=== PATIENT | male | born 1965 | race Asian ===

== ENCOUNTER 2022-07-05 14:54 | Inpatient (IN) | payer BC, OTHER ==
[~2022-07-05] VITALS: Ht 185.4 cm; Wt 135.6 kg
[2022-07-05] MEDS ORDERED: ALBUTEROL SULFATE 2.5 MG/3 ML NEBU ONE (15:13)
[2022-07-05] MEDS ORDERED: ALBUTEROL SULFATE 2.5 MG/ 0.5 ML NEBU ONE (15:13)
[2022-07-05] MEDS ORDERED: IPRATROPIUM BROMIDE 0.5 MG/2.5 ML NEBU ONE (15:14)
[2022-07-05] MEDS ORDERED: ASPIRIN 325 MG TABLET PO ONE (15:15)
[2022-07-05] MEDS ORDERED: methylPREDNISolone SOD SUCC 125 MG/2 ML VIAL IV ONE (15:15)
[2022-07-05] MEDS ORDERED: ALBUTEROL SULFATE 2.5 MG/3 ML NEBU NEB ONE (15:15)
[2022-07-05] MEDS ORDERED: IPRATROPIUM BROMIDE 0.5 MG/2.5 ML NEBU NEB ONE (15:15)
[2022-07-05 15:26] LABS: HEMATOCRIT 42.3 % (36.7-47.1); MEAN CORPUSCULAR HEMOGLOBIN 30.7 uug (23.8-33.4); MEAN CORPUSCULAR VOLUME 92.9 fL (73.0-96.2); PLATELET COUNT (AUTO) 319 K/uL (152-348)
[2022-07-05] MEDS ORDERED: methylPREDNISolone SOD SUCC 125 MG/2 ML VIAL ONE (15:44)
[2022-07-05] MEDS ORDERED: ASPIRIN 325 MG TABLET ONE (15:44)
[2022-07-05] MEDS ORDERED: ALBU0.63 NEB (16:25)
[2022-07-05] MEDS ORDERED: LOSA50TA39 PO (16:25)
[2022-07-05] MEDS ORDERED: CARV25TA2 PO (16:25)
[2022-07-05] MEDS ORDERED: FURO-151 PO (16:25)
[2022-07-05] MEDS ORDERED: EMPA25TA PO (16:25)
[2022-07-05] MEDS ORDERED: ASPI81TA31 PO (16:25)
[2022-07-05] MEDS ORDERED: AMLO-212 PO (16:25)
[2022-07-05 17:47] LABS: CARBON DIOXIDE 26 mmol/L (21-32); CHLORIDE 107 mmol/L (98-107); GLUCOSE 110 mg/dL (74-106); POTASSIUM 3.9 mmol/L (3.5-5.1); UREA NITROGEN, BLOOD 9 mg/dL (7-18)
[2022-07-05 18:00] LABS: ALANINE AMINOTRANSFERASE 36 U/L (16-63); ALKALINE PHOSPHATASE 98 U/L (50-136); ASPARTATE AMINOTRANSFERASE 20 U/L (15-37); BILIRUBIN,DIRECT 0.1 mg/dL (0.0-0.2); BILIRUBIN,TOTAL 0.9 mg/dL (0.2-1.0); TOTAL PROTEIN, SERUM 7.9 g/dL (6.4-8.2)
[2022-07-05] MEDS ORDERED: MAGNESIUM HYDROXIDE 30 ML LIQUID UDC PO PRN (19:15)
[2022-07-05] MEDS ORDERED: MORPHINE SULFATE 2 MG/1 ML DISP.SYRIN IV PRN (19:15)
[2022-07-05] MEDS ORDERED: ACETAMINOPHEN 325 MG TABLET PO PRN (19:15)
[2022-07-05] MEDS ORDERED: HYDROCODONE/APAP 5-325MG TABLET PO PRN (19:15)
[2022-07-05] MEDS ORDERED: REMEDY ESSENTIAL ZINC PASTE 113 GM TP PRN (19:15)
[2022-07-05] MEDS ORDERED: ONDANSETRON 4 MG/2 ML VIAL IV PRN (19:15)
[2022-07-05] MEDS ORDERED: methylPREDNISolone SOD SUCC 40 MG/ML VIAL IV SCH (19:15)
[2022-07-05] MEDS: IPRATROPIUM BROMIDE 0.5 MG/2.5 ML NEBU NEB PRN ×2 (19:36→23:39)
[2022-07-05] MEDS: ALBUTEROL SULFATE 2.5 MG/3 ML NEBU NEB PRN ×2 (19:36→23:39)
[2022-07-05] MEDS ORDERED: HOME MED MISCELLANEOUS XX SCH (19:45)
[2022-07-05] MEDS ORDERED: AZITHROMYCIN IV 500 MG in IV DEXTROSE 5% 250 ML IV SCH (19:45)
[2022-07-05] MEDS ORDERED: DEXTROSE 50% 50 ML DISP.SYRIN IV PRN (19:45)
[2022-07-05] MEDS ORDERED: CEFTRIAXONE 1 G in IV DEXTROSE 5% 50 ML IV SCH (19:45)
[2022-07-05 20:00] VITALS: BP 158/98
[2022-07-05] MEDS: methylPREDNISolone SOD SUCC 40 MG/ML VIAL IV SCH (20:18)
[2022-07-05] MEDS: ENOXAPARIN SODIUM 40 MG/0.4 ML DISP.SYRIN SQ SCH (20:19)
[2022-07-05] MEDS: BLOOD SUGAR DIAGNOSTIC 1 EACH STRIP VI SCH (20:20)
[2022-07-05] MEDS ORDERED: AZITHROMYCIN 500MG/ D5W 250ML IVPB **ER PYXIS ONLY IV ONE (20:53)
[2022-07-05] MEDS ORDERED: CEFTRIAXONE /D5W 50ML IVPB **ER PYXIS IV ONE (20:53)
[2022-07-06] VITALS: BP 151/83
[2022-07-06 04:00] VITALS: BP 141/83
[2022-07-06] MEDS: methylPREDNISolone SOD SUCC 40 MG/ML VIAL IV SCH ×3 (05:13→22:30)
[2022-07-06] MEDS: PANTOPRAZOLE SODIUM 40 MG TABLET.DR PO SCH (06:20)
[2022-07-06] MEDS: BLOOD SUGAR DIAGNOSTIC 1 EACH STRIP VI SCH ×4 (06:33→20:20)
[2022-07-06 06:54] LABS: HEMATOCRIT 43.2 % (36.7-47.1); MEAN CORPUSCULAR HEMOGLOBIN 30.7 uug (23.8-33.4); MEAN CORPUSCULAR VOLUME 92.4 fL (73.0-96.2); PLATELET COUNT (AUTO) 335 K/uL (152-348)
[2022-07-06 07:25] LABS: CREATININE 1.1 mg/dL (0.6-1.3); MAGNESIUM 2.1 mg/dL (1.8-2.4); PHOSPHOROUS 4.1 mg/dL (2.5-4.9); POTASSIUM 3.9 mmol/L (3.5-5.1)
[2022-07-06 07:32] LABS: THYROID STIMULATING HORMONE 0.357 mIU/mL (0.358-3.740)
[2022-07-06] MEDS ORDERED: MORPHINE SULFATE 2 MG/1 ML DISP.SYRIN IV PRN (08:09)
[2022-07-06] MEDS: LOSARTAN POTASSIUM 50 MG TABLET PO SCH (08:49)
[2022-07-06] MEDS: CARVEDILOL 25 MG TABLET PO SCH ×2 (08:49→17:37)
[2022-07-06] MEDS: ASPIRIN 81 MG TAB.CHEW PO SCH (08:49)
[2022-07-06] MEDS: FUROSEMIDE 40 MG TABLET PO SCH (08:50)
[2022-07-06] MEDS ORDERED: AMLODIPINE 5 MG TABLET PO ONE (09:00)
[2022-07-06] MEDS ORDERED: AMLODIPINE 5 MG TABLET PO SCH (09:00)
[2022-07-06] MEDS: EMPAGLIFLOZIN 25 MG TABLET PO SCH (09:00)
[2022-07-06 11:42] VITALS: BP 126/77
[2022-07-06] MEDS: INSULIN REGULAR, HUMAN 300 UNIT/3 ML VIAL SQ PRN ×3 (13:26→23:27)
[2022-07-06 15:39] VITALS: BP 136/64
[2022-07-06] MEDS: AMLODIPINE 5 MG TABLET PO SCH (17:37)
[2022-07-06] MEDS: ENOXAPARIN SODIUM 40 MG/0.4 ML DISP.SYRIN SQ SCH (20:14)
[2022-07-06] MEDS ORDERED: CEFTRIAXONE 2 G in IV DEXTROSE 5% 100 ML IV SCH (21:00)
[2022-07-06] MEDS ORDERED: ATORVASTATIN 20 MG TABLET PO SCH (21:00)
[2022-07-06] MEDS ORDERED: AZITHROMYCIN IV 500 MG in IV DEXTROSE 5% 250 ML IV SCH (22:00)
[2022-07-07 00:50] VITALS: BP 106/60
[2022-07-07 05:00] VITALS: BP 136/69
[2022-07-07] MEDS: methylPREDNISolone SOD SUCC 40 MG/ML VIAL IV SCH (06:20)
[2022-07-07] MEDS: PANTOPRAZOLE SODIUM 40 MG TABLET.DR PO SCH (06:20)
[2022-07-07] MEDS: BLOOD SUGAR DIAGNOSTIC 1 EACH STRIP VI SCH ×2 (07:34→11:14)
[2022-07-07] MEDS: ASPIRIN 81 MG TAB.CHEW PO SCH (08:35)
[2022-07-07] MEDS: EMPAGLIFLOZIN 25 MG TABLET PO SCH (08:36)
[2022-07-07] MEDS: FUROSEMIDE 40 MG TABLET PO SCH (08:47)
[2022-07-07] MEDS: LOSARTAN POTASSIUM 50 MG TABLET PO SCH (08:47)
[2022-07-07] MEDS: AMLODIPINE 5 MG TABLET PO SCH (08:47)
[2022-07-07] MEDS: CARVEDILOL 25 MG TABLET PO SCH (08:53)
[2022-07-07] MEDS: INSULIN REGULAR, HUMAN 300 UNIT/3 ML VIAL SQ PRN ×2 (09:01→11:17)
[2022-07-07] MEDS ORDERED: METH4TAB3 PO (11:07)
[2022-07-07 12:00] VITALS: BP 141/76
== END 2022-07-07 16:25 | disposition home or self-care (01) | DRG 202 ==
LOC: ER 14:58 → TELE3 17:52
PROVIDERS: ADMIT Nurse Practitioner Acute Care; ATTEND Nurse Practitioner Acute Care
DX: J45.901 Unspecified asthma with (acute) exacerbation (principal); J96.01 Acute respiratory failure with hypoxia; I50.32 Chronic diastolic (congestive) heart failure; I48.92 Unspecified atrial flutter; U09.9 Post COVID-19 condition, unspecified; E66.9 Obesity, unspecified; Z68.38 Body mass index [BMI] 38.0-38.9, adult; G47.33 Obstructive sleep apnea (adult) (pediatric); I11.0 Hypertensive heart disease with heart failure; E78.5 Hyperlipidemia, unspecified; E11.9 Type 2 diabetes mellitus without complications; Z79.82 Long term (current) use of aspirin; Z79.899 Other long term (current) drug therapy
CPT/HCPCS: 36415; 71045; 83735; 84100; 84443; 84481; 84484; 85025; 93005; 93307; 94640; A4663; G0378; J0456; J0696; J1650; J1815; J2920; J2930; J3590; J7050